=== PATIENT | male | born 1985 | race Caucasian/White ===

== ENCOUNTER 2024-10-25 20:57 | Emergency (ER) | payer BC, OTHER ==
[2024-10-25] MEDS ORDERED: Bacitracin 1 PK ONE (21:45)
[2024-10-25] MEDS ORDERED: Boostrix 0.5 ML (Tdap) VIAL (>/=7 yrs of age) ONE (21:46)
== END 2024-10-25 22:44 | disposition home or self-care (01) ==
LOC: ERS 20:57
DX: S90.811A Abrasion, right foot, initial encounter (principal); I10 Essential (primary) hypertension; Z55.6 Problems related to health literacy; W22.8XXA Striking against or struck by other objects, initial encounter
CPT/HCPCS: 90471; 90715